=== PATIENT | female | born 1960 | race Two or more races ===

== ENCOUNTER 2025-08-07 08:22 | Emergency (ER) | payer MEDICARE, MEDICAID ==
[~2025-08-07] VITALS: Ht 157.5 cm; Wt 79.1 kg
[2025-08-07 08:25] VITALS: BP 143/75; PULSE 83; RESP 16; TEMP 97.7; O2SAT 98
[2025-08-07] MEDS ORDERED: OMEP-148 PO (08:28)
[2025-08-07] MEDS ORDERED: CETI-89 PO (08:28)
[2025-08-07] MEDS ORDERED: ENAL1TAB PO (08:28)
[2025-08-07] MEDS: IBUPROFEN 400 MG TABLET PO ONE (10:07)
[2025-08-07] MEDS: ACETAMINOPHEN 500 MG TABLET PO ONE (10:07)
[2025-08-07] MEDS: PERTUSS(ACELL),DIPH,TET/PF 0.5 ML SYRINGE [ADULT] IM. ONE (10:09)
== END 2025-08-07 12:02 | disposition home or self-care (01) ==
LOC: EMS 08:22
DX: S91.202A Unspecified open wound of left great toe with damage to nail, initial encounter (principal); I10 Essential (primary) hypertension; Z79.899 Other long term (current) drug therapy; W22.09XA Striking against other stationary object, initial encounter; Y93.89 Activity, other specified; Y92.009 Unspecified place in unspecified non-institutional (private) residence as the place of occurrence of the external cause; Y99.8 Other external cause status
CPT/HCPCS: 90471; 90715; 99283